=== PATIENT | female | born 1990 | race Caucasian/White ===

== ENCOUNTER → 2021-06-20 22:50 | Emergency (ER) | payer SELFPAY ==
[~2021-06-20] VITALS: Ht 172.7 cm; Wt 59.0 kg
[2021-06-20 22:50] VITALS: BP_SYST 128
[~2021-06-20 22:50] MED LIST: DIPHENHYDRAMINE INJ 50 MG/ML VIAL IVP ONE; HALOPERIDOL LACTATE 5 MG/ML VIAL IVP ONE; KCL 20 mEq in 100 mL (PREMIX) 100 ML IV ONE; LORazepam 2 MG/ML VIAL IVP ONE; NACL 0.9% 1,000 ML IV ONE
--- NOTE | 2021-06-20 22:50 | NUR ---
Pt BIB ALS, placed to ER bed 01, to gown and annual campaign manager. Pt alert with dilated pupils, disoriented, garbled speech. Per ALS, pt was found stumbling about in the streets by Saul GARCIA. Ambulance crew state that pt's speech was more coherent CROWN CERAMIST and that she verbalized taking fentanyl and meth. Airway patent, VSS, NAD noted at this time.
--- NOTE | 2021-06-20 22:55 | NUR ---
Dr. Neal at bedside.
--- NOTE | 2021-06-20 23:26 | NUR ---
Sean catherine in ED - 06/21/21 at 0432 by [email or web address] PT CALLED IN TRIAGE BY MD OLEARY, NO ANSWER.
--- NOTE | 2021-06-20 23:30 | NUR ---
In/out cath procedure performed. Urine specimen collected and sent to lab. Pt tolerated well.
--- NOTE | 2021-06-20 23:40 | NUR ---
Pt attempting to climb OOB and pull of cardiac leads. Bilat soft wrist restraints placed per MD order.
[2021-06-21 00:05] LABS: CALCIUM 9.7 mg/dL (8.4-11.0); CREATININE 0.84 mg/dL (0.55-1.30)
[2021-06-21 00:09] LABS: POTASSIUM 2.9 mmol/L (3.5-5.1)
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
[2021-06-21 00:18] LABS: ALBUMIN 3.7 g/dL (3.4-4.8); TOTAL BILIRUBIN 0.1 mg/dL (0.0-1.0)
[2021-06-21 00:20] LABS: BARBITURATE, URINE NEGATIVE (NEG <=200); BENZODIAZEPINE, URINE NEGATIVE (NEG <=150); CANNABINOID, URINE POSITIVE (NEG <=50); COCAINE, URINE NEGATIVE (NEG <=150); METHAMPHETAMINES SCREEN,URINE NEGATIVE (NEG <=500); OPIATE, URINE NEGATIVE (NEG <=100); PHENCYCLIDINE SCREEN,URINE NEGATIVE (NEG <=25); UR TRICYCLIC ANTIDEPRESSANTS NEGATIVE (NEG <=300); URINE AMPHETAMINE NEGATIVE (NEG <=500); URINE METHADONE NEGATIVE (NEG <=200); URINE OXYCODONE SCREEN NEGATIVE (NEG <=100); URINE PROPOXYPHENE SCREEN NEGATIVE (NEG <=300)
[2021-06-21 00:27] LABS: HEMATOCRIT 38.2 % (36-48); HEMOGLOBIN 12.9 g/dL (12.0-16.0); MEAN CORPUSCULAR HEMOGLOBIN 30 pg (27-31); MEAN CORPUSCULAR HGB CONC 34 % (32-36); MEAN CORPUSCULAR VOLUME 88 fL (79.0-98.0); RED BLOOD CELL COUNT(AUTO) 4.32 MIL/uL (4.2-6.2); RED CELL DISTRIBUTION WIDTH 15.3 % (9.0-15.0)
[2021-06-21 00:28] LABS: BASOPHILS % (AUTO) 0.6 % (0.0-2.0); EOSINOPHILS % (AUTO) 0.5 % (0.0-4.0); LYMPHOCYTES # (AUTO) 2.2 K/uL (1.0-5.5); LYMPHOCYTES % (AUTO) 36.7 % (20.5-51.5); MONOCYTES # (AUTO) 0.7 K/uL (0.0-1.0); MONOCYTES % (AUTO) 12.4 % (1.7-9.3); NEUTROPHILS % (AUTO) 49.8 % (40.0-70.0); PLATELET COUNT (AUTO) 299 K/uL (130-430)
--- NOTE | 2021-06-21 00:30 | NUR ---
Pt able to speak some words clearly, but not in full coherent sentences. Pt attempting to get out of bed and aggitated. VSS. Dr. Neal notified.
--- NOTE | 2021-06-21 02:55 | NUR ---
Sean catherine in [facility] - 06/21/[address] at [email or web address] Neal at bedside.
--- NOTE | 2021-06-21 03:55 | NUR ---
Pt attempting to get out of bed and removing cardiac leads. Attempted to reorient pt, but non-compliant. Dr. Neal notified.
--- NOTE | 2021-06-21 04:30 | NUR ---
Pt resting quietly, respirations even and non-labored, VSS, NAD.
--- NOTE | 2021-06-21 06:00 | NUR ---
Pt resting quietly, NAD. VSS.
--- NOTE | 2021-06-21 07:26 | NUR ---
Pt report given to oncoming shift.
--- NOTE | 2021-06-21 07:26 | NUR ---
rec rprt from Nas PEREZ, pt resting in bed, placed pt back on leads
--- NOTE | 2021-06-21 07:30 | NUR ---
PT IS LAYING IN BED, RESTLESS AT TIMES, ATTEMPTING TO GET UP. PT REDIRECTED AND COMPLIANT. WHEN ASKED WHERE SHE WAS PT IS MUMBLING INCOHERANTLY. ER DR. BAUMANN MADE AWARE. VSS ON CONTROL AND RECOVERY COMBAT RESCUE
--- NOTE | 2021-06-21 08:19 | NUR ---
PT STATING SHE NEEDS TO GO HOME FOR HER SISTER AND ATTEMPTING TO GET OUT OF [facility],REDIRECTED AND COMPLIANT, WHEN ASKED WHAT HER SISTER'S NAME IS SHE STATES "DARRYL". WHEN ASKED WHERE SHE LIVES PT STATES "[place]" BUT UNABLE TO [place] AT THIS TIME, MUMBLING INCOHERENTLY INBETWEEN.UNABLE TO PROVIDE ADRESS OR PHONE NUMBERS.
--- NOTE | 2021-06-21 09:48 | NUR ---
Ornament Maker Hand WYATT Isidra responded to a phone request for social work support in ED. WYATT Dyerette met with patient at beside. Patient was awake, and SUBSTATION MAINTENANCE TECHNICIAN completed introductions. During contact patient was difficult to hear as her speech was noted to be soft and incoherent. Patient made poor eye contact, and unable to answer questions directly. Orientation- Patient was not aware of place. Patient was exhibiting hallucinations, stated she was in a [employer] store buying [employer]. She pointed to nurses station and stated "see they're right there". When SUBSTATION MAINTENANCE TECHNICIAN informed patient she was in the hospital, patient provided a mumbled response. Mental Health- When inquired about mental health issues, in between incoherent responses, patient was heard to say Schizophrenia and Bipolar. Social- SUBSTATION MAINTENANCE TECHNICIAN made attempts to inquire into support system, in between incoherent responses patient was heard to say "they would give me $100 but they know I'm a drug addict so sometimes $50", then would begin softly mumbling. Patient had a restraint on left wrist, but was moving around in the gurney and searching for something in the blankets. SUBSTATION MAINTENANCE TECHNICIAN made additional attempt to obtain information, but patient was incoherent. SUBSTATION MAINTENANCE TECHNICIAN spoke with CHRIS Cabrales and requested a psych consult for patient. SUBSTATION MAINTENANCE TECHNICIAN will continue to be available as needed. Addendum: 06/21/21 at 1057 by Isidra SCHNEIDER Patient was able to state she was "on the streets with boyfriend". Addendum: 06/22/21 at 1135 by Isidra SCHNEIDER Amended: Links added.
--- NOTE | 2021-06-21 12:02 | NUR ---
Drive Shaft And Steering Post Repairer HUB ASSOCIATE spoke to Krzysztof, a electronic device monitor in ED who confirmed that the Dr. Mcneil put in an order for pt. to have a pscy eval. HUB ASSOCIATE met briefly with pt. would go between sitting on the gurney to wandering about to all the ED rooms. HUB ASSOCIATE was not able to have a meaningful conversation with patient. When HUB ASSOCIATE introduced self, pt briefly made eye contact and then looked behind her back as if she was looking for someone and then left the room. Pt. mumbled something that HUB ASSOCIATE could not understand. Enmanuel Osorio would gently redircted pt. who continued to get up and wander. HUB ASSOCIATE asked pt. if there was someone she could call for her. Pt. stated no. Pt. later said, "Let me call Keya", but she did not her Keya's phone number. When pt. spoke it was low in tone, garbled, and did not make sense. HUB ASSOCIATE noticed pt was getting agitated and did not want to add to the situation. HUB ASSOCIATE was not able to speak to Dr. Mcneil as he was on the phone or dictating notes. HUB ASSOCIATE will remain available as needed.
--- NOTE | 2021-06-21 12:08 | NUR ---
Pt wondering around room with steady gait ,pt redirected to room, steady gait, respirations even and unlabored
--- NOTE | 2021-06-21 12:11 | NUR ---
Sitter at bedside
--- NOTE | 2021-06-21 12:18 | NUR ---
Lunch tray given to patient, pt refusing to eat at this time.
--- NOTE | 2021-06-21 12:46 | NUR ---
Pt crying, pt states she wants to go home. notified
--- NOTE | 2021-06-21 13:18 | NUR ---
Pt moved to bed 05 at this time, sitter at bedside
--- NOTE | 2021-06-21 13:57 | NUR ---
Pt sitting in bed, no s/s of distress, sitter at bedside
--- NOTE | 2021-06-21 15:13 | NUR ---
Pt attemting to get out the room, pt redirected to room by charge nurse britton felder at bedside
--- NOTE | 2021-06-21 16:19 | NUR ---
Pt stading in the room at this time, sitter at bedside, will cont to monitor.
[2021-06-21 17:00] VITALS: BP_SYST 118
--- NOTE | 2021-06-21 17:00 | NUR ---
Patient given written and verbal discharge instructions and verbalizes understanding. ER MD discussed with patient the results and treatment provided. Patient in stable condition. ID arm band removed. IV catheter removed intact and dressing applied, no active bleeding. NO Rx given. Patient educated on pain management and to follow up with PMD. Pain Scale 0. Opportunity for questions provided and answered. Medication side effect fact sheet provided. PT'S PARENT ACCOMPANIED PT HOME.
== END | disposition home or self-care (01) ==
LOC: SED 22:50 → EDBD 22:50
DX: R41.82 Altered mental status, unspecified (principal); T40.411D Poisoning by fentanyl or fentanyl analogs, accidental (unintentional), subsequent encounter; T50.911A Poisoning by multiple unspecified drugs, medicaments and biological substances, accidental (unintentional), initial encounter
CPT/HCPCS: 36415; 70450-TC; 76376; 80053; 80307; 84702; 85025; 96365; 96375; 96376; 99284; J1200; J1630; J2060; J3480